=== PATIENT | male | born 1975 | race Caucasian/White ===

== ENCOUNTER 2017-03-16 04:51 | Emergency (ER) | payer BC ==
[~2017-03-16] VITALS: Ht 185.4 cm; Wt 82.0 kg
--- NOTE | 2017-03-16 05:10 | PD ---
HPI Chief Complaint: shoulder injury Time Seen by Provider: 05:03 Travel History International Travel<30 days: No Contact w/Intl Traveler<30days: No Traveled to known affect area: No History of Present Illness HPI 41-year-old male presents to the emergency department for complaint of right shoulder injury. According the patient for the past few days she's noted recurrent pain to his right shoulder and then yesterday was wrestling with his dogs and os is balance and fell landing supporting his rate on his right upper extremity and causing pain to the right shoulder. No right shoulder or upper extremity numbness tingling or weakness. Patient does have stabbing type pain to the right shoulder with attempted range of motion at the shoulder. Patient states he did not hit his head did not lose consciousness did not injure his neck did not injure his back did not injure his chest ribs or abdomen and did not injure the pelvis or other extremities. Patient rates pain as moderate to severe. Patient took 2 Excedrin prior to going to bed last evening and awakened this morning preparing for work and noticed that the pain was persistent and worsening. Patient is right-handed. Patient had original injury several years ago. [facility] Past Medical History Narrative Medical Shoulder injury, no surgeries; nursing notes reviewed Social History Tobacco Use: Yes Allergies-Medications (Allergen,Severity, Reaction): Coded Allergies: No Known Allergies (Unverified , 03/16/17) Reported Meds & Prescriptions Reported Meds & Active Scripts Active Tramadol (Tramadol HCl) 50 Mg Tab 50 Mg PO Q6H PRN Ibuprofen 800 Mg Tab 800 Mg PO Q8H PRN Narrative Medication Excedrin Review of Systems Except as stated in HPI: all other systems reviewed are Neg General / Constitutional: No: Fever, Chills HENT: No: Congestion, Neck Pain Cardiovascular: No: Chest Pain or Discomfort Respiratory: No: Shortness of Breath Gastrointestinal: No: Abdominal Pain Genitourinary: No: Pelvic Pain Musculoskeletal: Positive: Limited ROM, Pain (right shoulder), No: Myalgias, Arthralgias Skin: No Rash Neurologic: No: Weakness, Dizziness ( right shoulder), Syncope, Focal Abnormalities, Coordination Problem, Paresthesia Psychiatric: No: Anxiety Hematologic/Lymphatic: No: Easy Bruising Physical Exam Narrative GENERAL: Well-developed well-nourished male in no acute distress no respiratory distress SKIN: Warm and dry. HEAD: Normocephalic. EYES: No scleral icterus. No injection or drainage. NECK: Supple, trachea midline. No JVD or lymphadenopathy. CARDIOVASCULAR: Regular rate and rhythm without murmurs, gallops, or rubs. RESPIRATORY: Breath sounds equal bilaterally. No accessory muscle use. GASTROINTESTINAL: Abdomen soft, non-tender, nondistended. MUSCULOSKELETAL: No cyanosis, or edema. 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 BACK: Nontender without obvious deformity. No CVA tenderness. Data Data Last Documented VS Orders Shoulder, Complete (>2vws) (03/16/17 ) Ice/Cold Pack (03/16/17 05:03) Resp Oxygen Justo C Titrat 1-4 L (03/16/17 ) Sodium Chloride 0.9% Flush (Ns Flush) (03/16/17 09:00) Sodium Chloride 0.9% Flush (Ns Flush) (03/16/17 05:45) Resp Oxygen Nasal Cannula (03/16/17 ) Sodium Chloride 0.9% Flush (Ns Flush) (03/16/17 05:45) Sodium Chloride 0.9% Flush (Ns Flush) (03/16/17 09:00) MDM Medical Decision Making Medical Screen Exam Complete: Yes Emergency Medical Condition: Yes Medical Record Reviewed: Yes Interpretation(s) Last Impressions Shoulder X-Ray 03/16/17 0000 Signed Impressions: Service Date/Time: Thursday, March 16, 2017 05:09 - CONCLUSION: Unremarkable examination of the right shoulder. David Espinal MD Differential Diagnosis Tendinitis, AC separation, clavicle fracture, subluxation, fracture Narrative Course Ice applied; imaging studies ordered Diagnosis Primary Impression: Right shoulder injury Additional Impression: Right shoulder tendinitis Referrals: Orthopedist call for appointment Patient Instructions: General Instructions Departure Forms: Tests/Procedures, Work Release Additional Instructions: Apply ice intermittently for first 12-24 hours then moist heat for comfort Wear sling Follow-up with primary care provider/orthopedist call for appointment Take ibuprofen/Advil/Motrin 800 mg as often as every 8 hours for pain greater than 5/10 intensity May take tramadol per prescription directions as needed for pain greater than 7/ 10 in intensity. Be aware that this medication may impair judgment delay reaction time increased risk for fall no work x 1 day Med/Other Pt SpecificInfo: Prescription(s) given Scripts Tramadol 50 Mg Tab50 Mg PO Q6H PRN (PAIN) #12 TAB Ref 0 Prov:Becky Tijerina MD 03/16/17 Ibuprofen 800 Mg [id number] Mg PO Q8H PRN (PAIN GREATER THAN 5) #12 TAB Ref 0 Prov:Becky Tijerina MD 03/16/17 Disposition: 01 DISCHARGE HOME Condition: Stable Becky Tijerina MD Mar 16, 2017 05:10 Tramadol 50 Mg Tab50 Mg PO Q6H PRN (PAIN) #12 TAB Ref 0 Prov:Becky Tijerina MD 03/16/17 Ibuprofen 800 Mg [id number] Mg PO Q8H PRN (PAIN GREATER THAN 5) #12 TAB Ref 0 Prov:Becky Tijerina MD 03/16/17 Disposition: 01 DISCHARGE HOME Condition: Becky Barcenas MD Mar 16, 2017 05:10 Becky Tijerina MD Mar 16, 2017 05:10
[2017-03-16 05:16] VITALS: BP 116/70; PULSE 62; RESP 18; TEMP 97.6; O2SAT 97
--- NOTE | 2017-03-16 05:31 | RADHPO ---
EXAM DATE/TIME: 03/16/2017 05:09 [place] COMPARISON: No previous studies available for comparison. INDICATIONS : Right shoulder pain post fall while wrestling. MEDICAL HISTORY : None. SURGICAL HISTORY : None. ENCOUNTER: Initial ACUITY: 1 day PAIN SCORE: 9/10 LOCATION: Right shoulder FINDINGS: Multiple view examination of the right shoulder demonstrates no evidence of fracture or dislocation. The glenohumeral and acromioclavicular joints are maintained. There is normal range of motion betwe en internal and external rotation. Bony mineralization is normal. CONCLUSION: Unremarkable examination of the right shoulder. David Espinal MD on March 16, 2017 at 5:29 Board Certified Radiologist. This report was verified electronically.
[2017-03-16] MEDS ORDERED: IBUP800T23 PO (05:33)
[2017-03-16] MEDS ORDERED: TRAM50TA PO (05:43)
[2017-03-16] MEDS ORDERED: IBUPROFEN 800 MG TAB PO ONE (05:45)
[2017-03-16] MEDS ORDERED: SODIUM CHLORIDE 0.9% FLUSH 10 ML FLUSH PRN (05:45)
[2017-03-16] MEDS ORDERED: SODIUM CHLORIDE 0.9% FLUSH 10 ML FLUSH IVF PRN (05:45)
[2017-03-16 05:52] VITALS: O2SAT 97
[2017-03-16 05:54] VITALS: BP 120/66
[2017-03-16] MEDS ORDERED: SODIUM CHLORIDE 0.9% FLUSH 10 ML FLUSH IV FLUSH SCH ×2 (09:00)
== END 2017-03-16 06:53 | disposition home or self-care (01) ==
LOC: PHED 04:51 → UNDOADMOB 05:38 → PHEDA 05:38 → PHED 06:53
DX: S49.81XA Other specified injuries of right shoulder and upper arm, initial encounter (principal); M77.8 Other enthesopathies, not elsewhere classified; W18.30XA Fall on same level, unspecified, initial encounter; W54.8XXA Other contact with dog, initial encounter; Y93.89 Activity, other specified; Y92.9 Unspecified place or not applicable; Y99.8 Other external cause status; Z72.0 Tobacco use
CPT/HCPCS: 73030; 99283